=== PATIENT | male | born 1960 | race Caucasian/White ===

== ENCOUNTER 2019-03-11 15:51 | Emergency (ER) | payer OTHER ==
[2019-03-11 16:01] VITALS: BMI 33.2
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
[2019-03-11] MEDS ORDERED: ACETAMINOPHEN 1000 MG/100 ML VIAL (NON FORMULARY) IVPB ONE (16:30)
[2019-03-11] MEDS ORDERED: ACETAMINOPHEN INJECTION 100 ML IVPB ONE (16:35)
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
[2019-03-11] MEDS ORDERED: METHOCARBAMOL 500 MG TABLET PO ONE (17:15)
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
[2019-03-11 18:24] VITALS: BP 118/72; PULSE 81; TEMP 98.1
== END 2019-03-11 18:24 | disposition home or self-care (01) ==
LOC: JER 15:51
PROC: 3E033NZ Introduction of Analgesics, Hypnotics, Sedatives into Peripheral Vein, Percutaneous Approach (ICD-10-PCS; principal; 2019-03-11)
PROC: BW40ZZZ Ultrasonography of Abdomen (ICD-10-PCS; 2019-03-11)
PROC: B246ZZZ Ultrasonography of Right and Left Heart (ICD-10-PCS; 2019-03-11)
DX: M54.2 Cervicalgia (principal); M25.511 Pain in right shoulder; M25.561 Pain in right knee; R10.32 Left lower quadrant pain; V49.49XA Driver injured in collision with other motor vehicles in traffic accident, initial encounter; Y92.414 Local residential or business street as the place of occurrence of the external cause; Y93.89 Activity, other specified; Y99.8 Other external cause status
CPT/HCPCS: 73030-TC-RT-FY; 73562-TC-RT-FY; 99283-25; J0131